=== PATIENT | male | born 1940 | race Caucasian/White ===

== ENCOUNTER 2017-03-30 08:42 | Observation (INO) | payer MEDICARE ==
--- NOTE | 2017-03-27 12:23 | Diagnostic Imaging Report ---
PROCEDURE: Frontal and lateral views of the chest. COMPARISON: None. INDICATIONS: PREOPERATIVE CHEST XRAY FOR SURGERY FINDINGS: Lines/tubes: None. Lungs: The lungs are well inflated and clear. There is no evidence of pneumonia or pulmonary edema. Pleura: There is no pleural effusion or pneumothorax. Heart and mediastinum: The heart and the mediastinum are normal. Bones: No acute bony abnormality. Degenerative changes of the thoracic spine. IMPRESSION: No acute radiographic abnormality. Dictated by: Andrew Ferrer M.D. on 03/27/2017 at 12:32 Electronically approved by: Andrew Ferrer M.D. on 03/27/2017 at 12:32
[2017-03-27 12:35] LABS: BASOPHILS # (AUTO) 0.1 (0.0-0.1); BASOPHILS % 0.7 % (0.0-1.0); EOSINOPHILS % 0.5 % (0.0-6.0); HEMATOCRIT 45.2 % (38.2-49.6); HEMOGLOBIN 14.9 g/dL (14.0-18.0); LYMPHOCYTES # (AUTO) 1.6 (1.0-3.2); LYMPHOCYTES % 19.7 % (18.0-39.1); MEAN CORPUSCULAR HEMOGLOBIN 30.2 pg (28-32); MEAN CORPUSCULAR VOLUME 91.7 fL (81-99); MONOCYTES # (AUTO) 0.7 (0.2-0.8); MONOCYTES % 7.9 % (4.4-11.3); NEUTROPHILS # (AUTO) 5.9 (2.1-6.9); PLATELET COUNT 250 x10e3/uL (140-360); RED BLOOD COUNT 4.93 x10e6/uL (4.3-5.7); RED CELL DISTRIBUTION WIDTH 13.2 % (11.7-14.4)
[2017-03-27 12:36] LABS: ANION GAP 15.9 mmol/L (8-16); CALCIUM 10.2 mg/dL (8.4-10.2); CREATININE, SERUM 1.71 mg/dL (0.72-1.25); POTASSIUM 4.9 mmol/L (3.5-5.1)
[~2017-03-30] VITALS: Ht 167.6 cm; Wt 68.0 kg
[~2017-03-30 08:42] MED LIST: CALCIUM PO; CEFAZOLIN SOD 2 GM/D5W 50ML 50 ML IV ONE; CELECOXIB 200 MG CAP ONE; DEXAMETHASONE SOD PHOS 10 MG/1 ML VIAL ONE; GABAPENTIN 300 MG CAP ONE; LEVOTHYROXINE88 MCG PO; LOSARTAN-HCTZ1 EAC1 PO; POTASSIUM CHLO10 ME1 PO; ROPIVACAINE 246.25 MG, EPINEPHRINE HCL 1:1000 0.5 MG, CLONIDINE HCL 0.08 MG, KETOROLAC ... INJ ONE; ULORIC40 MG PO
[2017-03-30] MEDS ORDERED: MUPIROCIN 2% OINT 22 GM TUBE ONE (09:28)
[2017-03-30] MEDS ORDERED: TRANEXAMIC ACID 1,000 MG/10 ML ML ONE (09:28)
[2017-03-30] MEDS ORDERED: BACITRACIN 50,000 UNIT VIAL ONE (09:29)
[2017-03-30] MEDS ORDERED: PROMETHAZINE HCL (IM) 25 MG/ML VIAL INJ PRN (11:30)
[2017-03-30] MEDS ORDERED: ACETAMINOPHEN 650 MG SUPP PR PRN (11:30)
[2017-03-30] MEDS ORDERED: HYDROCODONE/APAP 5MG-325MG TAB PO PRN (11:30)
[2017-03-30] MEDS ORDERED: DOCUSATE SODIUM 100 MG CAP PO PRN (11:30)
[2017-03-30] MEDS ORDERED: ZOLPIDEM TARTRATE 5 MG TAB PO PRN (11:30)
[2017-03-30] MEDS ORDERED: DIPHENHYDRAMINE HCL INJ 50 MG/ML VIAL IM/IV PRN (11:30)
[2017-03-30] MEDS ORDERED: KETOROLAC TROMETHAMINE 30 MG/ML VIAL IV PRN (11:30)
[2017-03-30] MEDS ORDERED: FAMOTIDINE 20 MG TAB PO ONE (11:30)
--- NOTE | 2017-03-30 12:16 | Diagnostic Imaging Report ---
PROCEDURE: X-RAY RIGHT KNEE, ONE OR TWO VIEWS COMPARISON: None. INDICATIONS:POST OP KNEE FINDINGS: See conclusion. CONCLUSION: Status post total right knee replacement with surrounding soft tissue swelling, air and velma consistent with recent surgery. No acute fractures. Dictated by: Norman Lea M.D. on 03/30/2017 at 12:24 Electronically approved by: Norman Lea M.D. on 03/30/2017 at 12:24
--- NOTE | 2017-03-30 13:43 | Operative Report ---
DATE OF PROCEDURE: March 30, 2017 DEWAXER: Juan Prather PA-C The patient was brought to the operating room for induction of anesthesia. Throughout this case, my PA's assistance was necessary for retraction of soft tissue and positioning of the extremity. This allows for efficient and technically successful execution of the operation and is considered medically necessary. PREOPERATIVE DIAGNOSIS: Osteoarthritis, right knee. POSTOPERATIVE DIAGNOSIS: Osteoarthritis, right knee. PROCEDURE: Right total knee arthroplasty. INDICATIONS: The patient is a 76-year-old gentleman with severe end-stage arthritis of his right knee. He has failed conservative management and would now like to proceed with a right total knee replacement. The risks and benefits of the procedure have been discussed. The recovery has been discussed. He states he understands and wishes to proceed. DESCRIPTION OF PROCEDURE: The patient was brought to the operating room and placed under general anesthetic. He received prophylactic antibiotics, a regional block, and tranexamic acid in the holding area. His right lower extremity was prepped and draped in a sterile manner. A preoperative time out was performed. The extremity was exsanguinated and a proximal tourniquet was inflated to 300 mmHg. An anterior approach with a medial parapatellar arthrotomy was performed. Marked varus deformity had been noted and a more aggressive medial soft tissue release was necessary. The knee was brought up into flexion with the patella everted. 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 This required some further exposure. The cruciate ligaments were sacrificed. A [employer] posterior stabilized Yin II knee system was used throughout the case. An extramedullary cutting guide was used to resect the proximal tibia. A +2 mm cut was needed due to the severe wear and limited motion of the knee. The tibial baseplate was a size #7. The central fin punch was impacted and attention was directed towards the distal femur. An intramedullary cutting guide was used to resect the distal femur in 6 degrees of valgus and rotation referenced off of a combination of landmarks including Whitesides line, the epicondylar axis, and the posterior condyles. Pronounced wear in the posteromedial aspect of the knee was taken into account. The femoral component was also a size #7. The anterior and posterior cuts were made. The notch cut was made. Trial reductions were performed. A 9 mm posterior stabilized tibial insert provided optimal soft tissue balancing in flexion and extension. The patella was resurfaced with a 32 mm x 9 mm patellar button. The thickness was checked before and after and was 24 mm. Patellar tracking was concentric. The trial implants were removed. A 100 mL premixed pericapsular injection was placed. The knee was thoroughly irrigated with the Pulsavac. The components were cemented into place using a single mix of high-viscosity Simplex cement pre-loaded with antibiotics. Care was taken to remove extravasated cement. The wound was further irrigated with pulsatile lavage while the cement cured. The arthrotomy was then closed with #1 Ethibond. The knee was put through flexion and extension after each stitch to ensure a secure closure. The skin was closed with subcuticular Vicryl and velma. A sterile bandage was applied. The patient was extubated and transported to the recovery room in stable condition. Blood loss was minimal. All needle and sponge counts were correct. Job#: [id number] VAS
[2017-03-30] MEDS ORDERED: CEFAZOLIN SOD 1 GM/NS 50ML 50 ML IV SCH (14:00)
[2017-03-30] MEDS ORDERED: LIDOCAINE HCL 2% LOCAL INJ 5 ML SDV VIAL INJ ONE (14:03)
[2017-03-30] MEDS ORDERED: SEVOFLURANE INHAL SOLN 250 ML PEN BTL ONE (14:03)
[2017-03-30] MEDS ORDERED: PROPOFOL IV EMULSION 10 MG/ML 20 ML VIAL ONE (14:03)
[2017-03-30] MEDS ORDERED: ONDANSETRON HCL INJ 2 MG/ML VIAL ONE (14:03)
[2017-03-30] MEDS ORDERED: DEXAMETHASONE SOD PHOS INJ 4 MG/ML VIAL ONE (14:03)
[2017-03-30] MEDS ORDERED: EPHEDRINE SULFATE INJ 50 MG/10 ML SYR ONE (14:03)
[2017-03-30] MEDS ORDERED: CELECOXIB 100 MG CAP PO SCH (17:00)
[2017-03-30] MEDS: SODIUM CHLORIDE 0.9% 1000ML 1,000 ML IV SCH ×2 (17:01→21:19)
[2017-03-30] MEDS: ACETAMINOPHEN 1000 MG/100 ML IV SCH (17:02)
[2017-03-30] MEDS: ASPIRIN 325 MG TAB PO SCH (17:02)
[2017-03-30] MEDS: CEFAZOLIN SOD 1 GM VIAL IV SCH (17:03)
[2017-03-30] MEDS: CELECOXIB 200 MG CAP PO SCH (17:03)
[2017-03-30] MEDS: ONDANSETRON HCL INJ 2 MG/ML VIAL IV PRN (17:03)
[2017-03-30 17:32] VITALS: BP 120/68
[2017-03-30] MEDS ORDERED: ROPIVACAINE 0.5% 5 MG/ML 30 ML SDV ONE (18:39)
[2017-03-30] MEDS ORDERED: MIDAZOLAM HCL 2 MG/2 ML VIAL ONE (18:52)
[2017-03-30] MEDS ORDERED: FENTANYL CITRATE/PF 100MCG/2 ML INJ ONE (18:52)
[2017-03-30 20:00] VITALS: BP 118/66
[2017-03-30 23:30] VITALS: BP 120/68
[2017-03-31] VITALS: BP 112/65
[2017-03-31] MEDS: CEFAZOLIN SOD 1 GM VIAL IV SCH ×2 (02:00→08:39)
[2017-03-31] MEDS ORDERED: SODIUM CHLORIDE 0.9% 50ML 50 ML ONE (02:46)
[2017-03-31 04:00] VITALS: BP 119/65
[2017-03-31] MEDS: ACETAMINOPHEN 1000 MG/100 ML IV SCH ×2 (06:00)
[2017-03-31 07:16] LABS: HEMATOCRIT 33.4 % (38.2-49.6); HEMOGLOBIN 11.5 g/dL (14.0-18.0)
[2017-03-31 08:08] VITALS: BP 121/65
[2017-03-31] MEDS: SODIUM CHLORIDE 0.9% 1000ML 1,000 ML IV SCH (08:39)
[2017-03-31] MEDS: ASPIRIN 325 MG TAB PO SCH (08:39)
[2017-03-31] MEDS: CELECOXIB 200 MG CAP PO SCH (08:39)
[2017-03-31] MEDS: HYDROCODONE/APAP 7.5MG-325MG 1 EA TAB PO PRN ×2 (09:02→13:14)
[2017-03-31] MEDS: ONDANSETRON HCL INJ 2 MG/ML VIAL IV PRN (09:40)
[2017-03-31] MEDS ORDERED: ASPIRIN325 MG PO (09:57)
[2017-03-31] MEDS ORDERED: ACETAMINOPHEN 1000 MG/100 ML IV PRN (11:30)
[2017-03-31 14:10] VITALS: BP 116/61
--- NOTE | 2017-04-17 10:59 | Discharge Summary ---
CHIEF COMPLAINT: Right knee pain. HISTORY OF PRESENT ILLNESS: This patient is a 76-year-old male complaining of right knee pain for many years. He has had injections and physical therapy, as well as anti-inflammatories without lasting relief. His x-rays show end-stage varus OA in the right. The findings and options were discussed. He would now like to proceed with more aggressive intervention. The risks and benefits of a right total knee replacement were explained. The patient states he understands and wishes to proceed. HOSPITAL COURSE: The patient underwent a right total knee replacement without complications. He was then transferred to the recovery room and floor in stable condition. He was followed by Dr. George for postop medical management. He remained stable throughout his hospital stay. He was able to be discharged on postop day 1 after he progressed nicely with physical therapy. PRINCIPAL DIAGNOSIS: Osteoarthritis of the right knee. PRINCIPAL PROCEDURE: Right total knee replacement. DISCHARGE INSTRUCTIONS: The patient was discharged home with home health and physical therapy arranged. He was to be weightbearing as tolerated with a rolling walker. He will resume his home medications as directed. He was to take aspirin twice a day for thromboprophylaxis. He was to follow up in our office in roughly 8-10 days. DICTATED BY GERARDO HARRELL PA-C CADY FERGUSON MD Job#: [id number] JOSÉ MIGUEL
== END 2017-03-31 15:34 | disposition home or self-care (01) ==
LOC: OR 08:42 → INTOOBSV 14:37 → MED/SURG 14:37
PROVIDERS: ADMIT Specialist; ATTEND Specialist
DX: M17.0 Bilateral primary osteoarthritis of knee (principal); I10 Essential (primary) hypertension; E03.9 Hypothyroidism, unspecified; Z85.46 Personal history of malignant neoplasm of prostate; D64.9 Anemia, unspecified
CPT/HCPCS: 27447; 36415 ×2; 71046; 73560; 80048; 85014; 85018; 85025; 86850; 86900; 86920; 93005; 97110 ×2; 97116; 97161; C1713; G0378 ×2; G8978; G8979; J0171; J0690 ×2; J1100 ×2; J1885; J2001; J2250; J2405 ×2; J2795; J7030 ×2